=== PATIENT | female | born 1990 | race Caucasian/White ===

== ENCOUNTER 2018-07-25 09:53 | Emergency (ER) | payer OTHER, MEDICAID ==
[~2018-07-25] VITALS: Ht 160 cm; Wt 61.2 kg
[~2018-07-25 09:53] MED LIST: ADDERALL 10 MG10 MG PO; FLEXERIL PO; HYDROCODONE-AP1 EAC6 PO; IBUPROFEN 800800 M1 PO; NORCO 5-325 TA1 EAC1 PO; PRENATAL; PROZAC20 MG PO
[2018-07-25 11:27] LABS: ABSOLUTE LYMPHOCYTES 1.6 thou/uL (0.8-5.3); ABSOLUTE MONOCYTES 0.5 thou/uL (0.0-1.2); ABSOLUTE NEUTROPHILS 3.1 thou/uL (1.6-8.1); BASOPHILS 0.7 %; EOSINOPHILS 0.8 %; HEMATOCRIT 43.3 % (37.0-47.0); HEMOGLOBIN 14.5 gm/dL (12.0-15.0); LYMPHOCYTES 30.2 %; MCH 29.3 pg (26.0-34.0); MCHC 33.6 g/dL (28.0-37.0); MCV 87.1 fL (80.0-100.0); MONOCYTES 8.8 %; MPV 9.5 fl. (7.2-11.1); NUCLEATED RBCS 0 /100WBC; PLATELET COUNT* 241 thou/uL (150-400); POLYS 59.5 %; RBC 4.96 mil/uL (4.20-5.00); RDW-CV 13.6 % (10.5-14.5); WBC 5.2 thou/uL (4.0-11.0)
[2018-07-25 11:45] LABS: CALCIUM 8.8 mg/dL (8.5-10.1); CREATININE 0.8 mg/dL (0.6-1.3); POTASSIUM 3.5 mmol/L (3.5-5.1)
[2018-07-25 11:49] LABS: ALBUMIN 3.8 g/dL (3.4-5.0); TOTAL BILIRUBIN 0.7 mg/dL (<0.1-1.0); TOTAL PROTEIN 7.1 g/dL (6.4-8.2)
[2018-07-25 12:32] LABS: URINE BILIRUBIN NEGATIVE (Negative); URINE BLOOD NEGATIVE (Negative); URINE CLARITY SL CLOUDY; URINE COLOR YELLOW; URINE GLUCOSE-RANDOM NEGATIVE (Negative); URINE KETONES TRACE (Negative); URINE LEUKOCYTES-REFLEX 1+ (Negative); URINE NITRITE-REFLEX NEGATIVE (Negative); URINE PROTEIN NEGATIVE (Negative); URINE SPECIFIC GRAVITY 1.015 (1.005-1.030); URINE UROBILINOGEN 0.2 E.U./dl (0.2-1.0)
[2018-07-25 12:43] LABS: BACTERIA-REFLEX >30 Many /HPF (None Seen); CASTS None Seen /LPF (None Seen); CRYSTALS None Seen /LPF (None Seen); SQUAMOUS 0-3 Few /LPF (0-3); URINE RBC 0-2 Rare /HPF (0-2)
[2018-07-25] MEDS ORDERED: TRAMADOL 50 MG50 MG PO (13:35)
[2018-07-25] MEDS ORDERED: PRILOSEC 20 MG20 MG PO (13:35)
[2018-07-25] MEDS ORDERED: CIPRO500 MG PO (13:38)
[2018-07-25 13:49] VITALS: BP 105/74
== END 2018-07-25 13:51 | disposition home or self-care (01) ==
LOC: M.ERS 09:53
PROVIDERS: Nurse Practitioner Psychiatric/Mental Health
DX: R10.11 Right upper quadrant pain (principal); R10.13 Epigastric pain; R10.12 Left upper quadrant pain; R82.90 Unspecified abnormal findings in urine; F31.9 Bipolar disorder, unspecified

== ENCOUNTER 2020-07-18 14:53 | Emergency (ER) | payer OTHER, MEDICAID ==
[~2020-07-18] VITALS: Ht 157.5 cm; Wt 56.7 kg
[~2020-07-18 14:53] MED LIST changes: +CIPRO500 MG PO; +PRILOSEC 20 MG20 MG PO; +TRAMADOL 50 MG50 MG PO
[2020-07-18] MEDS ORDERED: BACTRIM DS TAB1 EACH PO (15:39)
[2020-07-18 15:45] VITALS: BP 126/72
== END 2020-07-18 15:46 | disposition home or self-care (01) ==
LOC: M.ERS 14:53
DX: H00.035 Abscess of left lower eyelid (principal); H00.032 Abscess of right lower eyelid

== ENCOUNTER 2020-12-08 22:09 | Emergency (ER) | payer OTHER, MEDICAID ==
[~2020-12-08] VITALS: Ht 160 cm; Wt 58.1 kg
[~2020-12-08 22:09] MED LIST changes: +BACTRIM DS TAB1 EACH PO
[2020-12-08 23:12] LABS: ABSOLUTE EOSINOPHILS 0.2 thou/uL (0.0-0.7); ABSOLUTE LYMPHOCYTES 2.2 thou/uL (0.8-5.3); ABSOLUTE MONOCYTES 0.7 thou/uL (0.0-1.2); ABSOLUTE NEUTROPHILS 3.5 thou/uL (1.6-8.1); BASOPHILS 0.6 %; EOSINOPHILS 3.3 %; HEMATOCRIT 43.5 % (37.0-47.0); HEMOGLOBIN 14.5 gm/dL (12.0-15.0); LYMPHOCYTES 33.6 %; MCH 30.2 pg (26.0-34.0); MCHC 33.4 g/dL (28.0-37.0); MCV 90.5 fL (80.0-100.0); MONOCYTES 10.3 %; MPV 8.1 fl. (7.2-11.1); NUCLEATED RBCS 0 /100WBC; PLATELET COUNT* 234 thou/uL (150-400); POLYS 52.2 %; RBC 4.81 mil/uL (4.20-5.00); WBC 6.7 thou/uL (4.0-11.0)
[2020-12-08 23:19] LABS: CALCIUM 8.7 mg/dL (8.5-10.1); CREATININE 0.8 mg/dL (0.6-1.3); POTASSIUM 3.8 mmol/L (3.5-5.1)
[2020-12-09] MEDS ORDERED: KEFLEX250 MG PO (00:12)
[2020-12-09] MEDS ORDERED: ZOFRAN ODT4 MG PO (00:12)
[2020-12-09] MEDS ORDERED: APAP W/CODEINE1 TA2 PO (00:20)
[2020-12-09 00:30] VITALS: BP 109/66
== END 2020-12-09 00:30 | disposition home or self-care (01) ==
LOC: M.ERS 22:09
PROVIDERS: Emergency Medicine
DX: N63.0 Unspecified lump in unspecified breast (principal); R42 Dizziness and giddiness

== ENCOUNTER 2021-06-19 20:41 | Emergency (ER) | payer OTHER, MEDICAID ==
[~2021-06-19] VITALS: Ht 160 cm; Wt 59.9 kg
[~2021-06-19 20:41] MED LIST changes: +APAP W/CODEINE1 TA2 PO; +KEFLEX250 MG PO; +ZOFRAN ODT4 MG PO
[2021-06-19 21:42] LABS: ABSOLUTE EOSINOPHILS 0.1 thou/uL (0.0-0.7); ABSOLUTE LYMPHOCYTES 1.7 thou/uL (0.8-5.3); ABSOLUTE MONOCYTES 0.5 thou/uL (0.0-1.2); ABSOLUTE NEUTROPHILS 2.6 thou/uL (1.6-8.1); BASOPHILS 0.7 %; EOSINOPHILS 2.9 %; HEMATOCRIT 40.3 % (37.0-47.0); HEMOGLOBIN 13.3 gm/dL (12.0-15.0); LYMPHOCYTES 34.7 %; MCH 29.6 pg (26.0-34.0); MCHC 33.1 g/dL (28.0-37.0); MCV 89.3 fL (80.0-100.0); MPV 8.4 fl. (7.2-11.1); NUCLEATED RBCS 0 /100WBC; PLATELET COUNT* 227 thou/uL (150-400); POLYS 51.7 %; RBC 4.51 mil/uL (4.20-5.00); RDW-CV 13.4 % (10.5-14.5)
[2021-06-19 21:50] LABS: CALCIUM 8.9 mg/dL (8.5-10.1); CREATININE 0.9 mg/dL (0.6-1.3)
[2021-06-19 21:55] LABS: ALBUMIN 3.6 g/dL (3.4-5.0); TOTAL BILIRUBIN 0.2 mg/dL (<0.1-1.0); TOTAL PROTEIN 7.1 g/dL (6.4-8.2)
[2021-06-19 22:09] VITALS: BP 154/82
--- NOTE | 2021-06-20 16:41 | EKG ---
[place] [address] ELECTROCARDIOGRAM REPORT Name: JOHANNAALEXI Loly Room: 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
== END 2021-06-19 22:09 | disposition home or self-care (01) ==
LOC: M.ERS 20:41
PROVIDERS: Physician Assistant
DX: R00.2 Palpitations (principal); R07.89 Other chest pain; R06.00 Dyspnea, unspecified; R00.0 Tachycardia, unspecified; F31.9 Bipolar disorder, unspecified; Z79.899 Other long term (current) drug therapy

== ENCOUNTER 2021-08-21 21:04 | Emergency (ER) | payer OTHER, MEDICAID ==
[~2021-08-21] VITALS: Ht 157.5 cm; Wt 59.0 kg
[2021-08-21 21:13] VITALS: BP 125/75
== END 2021-08-22 00:07 | disposition left against medical advice (07) ==
LOC: M.ERS 21:04
DX: R51.9 Headache, unspecified (principal); M79.10 Myalgia, unspecified site; R09.81 Nasal congestion; J02.9 Acute pharyngitis, unspecified; Z53.21 Procedure and treatment not carried out due to patient leaving prior to being seen by health care provider

== ENCOUNTER 2021-09-07 21:42 | Emergency (ER) | payer OTHER, MEDICAID ==
[~2021-09-07] VITALS: Ht 162.6 cm; Wt 54.4 kg
[2021-09-07 22:35] LABS: URINE BILIRUBIN NEGATIVE (Negative); URINE BLOOD TRACE (Negative); URINE CLARITY CLEAR; URINE COLOR YELLOW; URINE GLUCOSE-RANDOM NEGATIVE (Negative); URINE KETONES NEGATIVE (Negative); URINE LEUKOCYTES-REFLEX NEGATIVE (Negative); URINE NITRITE-REFLEX NEGATIVE (Negative); URINE PROTEIN NEGATIVE (Negative); URINE SPECIFIC GRAVITY >= 1.030 (1.005-1.030); URINE UROBILINOGEN 0.2 E.U./dl (0.2-1.0)
[2021-09-07 22:42] LABS: AMP/METHAMP POSITIVE (Negative); BARBITURATES Negative (Negative); BENZODIAZEPINES Negative (Negative); COCAINE Negative (Negative); METHADONE Negative (Negative); OPIATES Negative (Negative); PCP Negative (Negative); THC POSITIVE (Negative)
[2021-09-07 23:11] LABS: ABSOLUTE EOSINOPHILS 0.1 thou/uL (0.0-0.7); ABSOLUTE LYMPHOCYTES 1.4 thou/uL (0.8-5.3); ABSOLUTE MONOCYTES 0.4 thou/uL (0.0-1.2); ABSOLUTE NEUTROPHILS 3.9 thou/uL (1.6-8.1); BASOPHILS 0.4 %; CALCIUM 8.1 mg/dL (8.5-10.1); CREATININE 0.7 mg/dL (0.6-1.3); EOSINOPHILS 0.9 %; HEMATOCRIT 41.6 % (37.0-47.0); HEMOGLOBIN 13.6 gm/dL (12.0-15.0); LYMPHOCYTES 23.9 %; MCH 29.2 pg (26.0-34.0); MCHC 32.7 g/dL (28.0-37.0); MCV 89.2 fL (80.0-100.0); MONOCYTES 7.4 %; MPV 9.2 fl. (7.2-11.1); NUCLEATED RBCS 0 /100WBC; PLATELET COUNT* 222 thou/uL (150-400); POLYS 67.4 %; POTASSIUM 3.5 mmol/L (3.5-5.1); RBC 4.67 mil/uL (4.20-5.00); RDW-CV 12.6 % (10.5-14.5); WBC 5.9 thou/uL (4.0-11.0)
[2021-09-07 23:15] LABS: ALBUMIN 3.6 g/dL (3.4-5.0); TOTAL BILIRUBIN 0.3 mg/dL (<0.1-1.0); TOTAL PROTEIN 6.8 g/dL (6.4-8.2)
[2021-09-08 00:19] VITALS: BP 102/56
--- NOTE | 2021-09-09 15:58 | EKG ---
[place] [address] ELECTROCARDIOGRAM REPORT Name: JOHANNAALEXI Loly Room: 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: : 1990 Requested By: Cynthia Dumont Order Number: [id number] MD: Nasim Gruber Measurements Intervals [place] Rate: 113 P: 56 [place]: 162 QRS: 23 QRSD: 93 T: 3 QT: 337 QTc: 462 Interpretive Statements Sinus tachycardia Borderline ST depression, anterior leads Compared to ECG 06/19/2021 20:46:04 ST (T wave) deviation now present Sinus arrhythmia no longer present Electronically Signed On 09-09-2021 15:58:13 INDUSTRIAL ENERGY ENGINEER by Nasim Gruber [email or web address] <ELECTRONICALLY SIGNED> By: Nasim Gruber MD, FAC 09/09/21 1558 2145 Nasim Gruber MD, [facility] /EPI
== END 2021-09-08 00:22 | disposition home or self-care (01) ==
LOC: M.ERS 21:42
PROVIDERS: Personal Emergency Response Attendant
DX: T40.711A Poisoning by cannabis, accidental (unintentional), initial encounter (principal); R06.02 Shortness of breath; F31.9 Bipolar disorder, unspecified; Z79.899 Other long term (current) drug therapy; Y92.89 Other specified places as the place of occurrence of the external cause